=== PATIENT | female | born 1955 | race Caucasian/White ===

== ENCOUNTER → 2023-09-01 06:31 | Day surgery (SDC) | payer MEDICARE, OTHER, SELFPAY | LOC: GI 06:31 | PROVIDERS: ATTENDING PHYSICIAN Specialist | DX: Z12.11 Encounter for screening for malignant neoplasm of colon (principal); K57.30 Diverticulosis of large intestine without perforation or abscess without bleeding; K64.8 Other hemorrhoids; D12.2 Benign neoplasm of ascending colon; Z86.010 Personal history of colon polyps | CPT/HCPCS: 45380; 88305 ==

== ENCOUNTER → 2023-09-29 11:02 | Outpatient (REF) | payer MEDICARE, OTHER, SELFPAY | LOC: HWWDC 11:02 | PROVIDERS: ATTENDING PHYSICIAN Obstetrics & Gynecology; FAMILY PHYSICIAN Family Medicine | DX: Z12.31 Encounter for screening mammogram for malignant neoplasm of breast (principal) | CPT/HCPCS: 77063; 77067 ==

== ENCOUNTER → 2024-02-04 11:34 | Outpatient (REF) | payer MEDICARE, OTHER, SELFPAY ==
[2024-02-04 16:11] LABS: % Basophils 1.1 % (0-2); % Eosinophils 0.6 % (0-6); % Immature Granulocytes 0.3 % (0-0.5); % Lymphocytes 30.6 % (20.5-51.1); % Monocytes 7.6 % (1.7-9.3); % Neutrophils 59.8 % (42.2-75.2); Absolute Basophils 0.1 10^3/uL (0-0.2); Absolute Monocytes 0.5 10^3/uL (0.1-0.6); Absolute Neutrophils 3.9 10^3/uL (1.4-6.5); Hematocrit 43.1 % (37.0-47.0); Hemoglobin 14.6 g/dL (12.0-16.0); Mean Corp Hgb Conc. 33.9 g/dL (33.0-37.0); Mean Corpuscular Hgb 30.6 pg (27.0-31.0); Mean Corpuscular Volume 90.4 fL (81.0-99.0); Mean Platelet Volume 10.3 fL (7.4-10.4); Nucleated Red Blood Cells % 0 %; Platelet Count 179 10^3/uL (130-400); Red Blood Cell Count 4.77 10^6/uL (4.20-5.40); Red Cell Dist. Width 13.9 % (11.5-14.5); White Blood Cell Count 6.5 10^3/uL (4.8-10.8)
[2024-02-04 16:13] LABS: Blood Urea Nitrogen 21 mg/dl (7-17); Calcium 9.9 mg/dl (8.4-10.2); Carbon Dioxide 26 mmol/L (22-30); Chloride 101 mmol/L (98-107); Glucose 104 mg/dl (70-99); Potassium 4.8 mmol/L (3.5-5.1); Sodium 138 mmol/L (135-145); eGFR 54.73
== END ==
LOC: HWLAB 11:34
PROVIDERS: ATTENDING PHYSICIAN Student in an Organized Health Care Education/Training Program; FAMILY PHYSICIAN Family Medicine; REFERRING PHYSICIAN Student in an Organized Health Care Education/Training Program
DX: Z01.818 Encounter for other preprocedural examination (principal)
CPT/HCPCS: 36415; 80048; 85025; 93005

== ENCOUNTER → 2024-02-11 13:39 | Outpatient (REF) | payer MEDICARE, OTHER, SELFPAY | LOC: CLAB 13:39 | PROVIDERS: ATTENDING PHYSICIAN Student in an Organized Health Care Education/Training Program | DX: M79.89 Other specified soft tissue disorders (principal) | CPT/HCPCS: 88305 ==

== ENCOUNTER → 2024-08-24 10:25 | Outpatient (REF) | payer MEDICARE, OTHER, SELFPAY | LOC: HWRAD 10:25 | PROVIDERS: ATTENDING PHYSICIAN Family Medicine | DX: M54.16 Radiculopathy, lumbar region (principal); M25.552 Pain in left hip | CPT/HCPCS: 72110; 73502 ==

== ENCOUNTER → 2024-10-19 09:22 | Outpatient (REF) | payer MEDICARE, OTHER, SELFPAY ==
[2024-10-19 11:19] LABS: Hematocrit 40.7 % (37.0-47.0); Hemoglobin 13.3 g/dL (12.0-16.0); Mean Corp Hgb Conc. 32.7 g/dL (33.0-37.0); Mean Corpuscular Hgb 30.6 pg (27.0-31.0); Mean Corpuscular Volume 93.8 fL (81.0-99.0); Mean Platelet Volume 9.8 fL (7.4-10.4); Platelet Count 198 10^3/uL (130-400); Red Blood Cell Count 4.34 10^6/uL (4.20-5.40); Red Cell Dist. Width 13.5 % (11.5-14.5); White Blood Cell Count 5.7 10^3/uL (4.8-10.8)
[2024-10-19 12:01] LABS: ALT (SGPT) 29 U/L (0-35); AST (SGOT) 28 U/L (14-36); Albumin 4.3 g/dl (3.5-5.0); Alkaline Phosphatase 51 U/L (38-126); Blood Urea Nitrogen 17 mg/dl (7-17); Calcium 9.5 mg/dl (8.4-10.2); Carbon Dioxide 28 mmol/L (22-30); Chloride 107 mmol/L (98-107); Glucose 80 mg/dl (70-99); Potassium 4.9 mmol/L (3.5-5.1); Sodium 140 mmol/L (135-145); Total Bilirubin 0.7 mg/dl (0.2-1.3); Total Protein 6.9 g/dl (6.3-8.2); eGFR 54.73
== END ==
LOC: SDSPAT 09:22
PROVIDERS: ATTENDING PHYSICIAN Orthopaedic Surgery Orthopaedic Surgery of the Spine; FAMILY PHYSICIAN Family Medicine
DX: Z01.818 Encounter for other preprocedural examination (principal)
CPT/HCPCS: 36415; 80053; 85027; 87070; 93005

== ENCOUNTER 2024-11-02 06:11 | Day surgery (SDC) | payer MEDICARE, OTHER, SELFPAY ==
[2024-11-02] VITALS (14 sets, daily range): BP systolic 92–139; BP diastolic 48–76; PULSE 67; O2SAT 90; BMI 34.4
[2024-11-02] MEDS: METHOCARBAMOL 1500 MG PO (09:18)
[2024-11-02] MEDS: CELEBREX 200 MG PO (09:18)
[2024-11-02] MEDS: LYRICA 150 MG PO (09:18)
[2024-11-02] MEDS: TYLENOL 1000 MG PO ×3 (09:19→21:17)
[2024-11-02] MEDS: NORMOSOL-R/PLASMALYTE-A 1000 IV ×3 (09:19→15:01)
[2024-11-02] MEDS: DILAUDID 0.5 MG IV ×2 (11:59→12:14)
--- NOTE | 2024-11-02 12:03 | W.PN.UPDATE ---
Update Note
Progress Note Update
Lumbar spondylolisthesis s/p L4-L5 PSF with Dr Ramirez 11/02/24
- Pt will need brace
DVT prophylaxis - b/l SCDs/TEDs
HTN - + parameters - monitor BP
CKD stage 3 - minimize nephrotoxins
Peripheral neuropathy - continue Gabapentin but increase dose to accommodate for post-surgical pain
HLD
Sinus bradycardia, asymptomatic
Colon polyps
Diverticulosis
Anxiety
Depression
Obesity
Daily alcohol, 1 drink/daily reported
[2024-11-02] MEDS: DILAUDID 0.25 MG IV ×2 (12:49→13:21)
[2024-11-02] MEDS: WELLBUTRIN XL (24 hour extended release) 150 MG PO (14:33)
[2024-11-02] MEDS: LIPITOR 20 MG PO (14:34)
[2024-11-02] MEDS: PROZAC 20 MG PO (14:34)
[2024-11-02] MEDS: ANCEF 5 IV (16:47)
[2024-11-02] MEDS: SENOKOT 17.2 MG PO (21:16)
[2024-11-02] MEDS: PEPCID 20 MG PO (21:16)
[2024-11-02] MEDS: NEURONTIN 300 MG PO (21:16)
[2024-11-02] MEDS: COLACE 100 MG PO (21:16)
[2024-11-02] MEDS: ROXICODONE 5 MG PO (22:20)
[2024-11-03] MEDS: NORMOSOL-R/PLASMALYTE-A 1000 IV (00:13)
[2024-11-03] MEDS: ANCEF 5 IV (00:13)
[2024-11-03 03:10] VITALS: BP 116/52
[2024-11-03] MEDS: TYLENOL 1000 MG PO ×2 (03:10→09:16)
[2024-11-03 06:35] LABS: Hematocrit 34.7 % (37.0-47.0); Hemoglobin 11.5 g/dL (12.0-16.0)
[2024-11-03 07:01] LABS: Blood Urea Nitrogen 17 mg/dl (7-17); Calcium 8.7 mg/dl (8.4-10.2); Carbon Dioxide 25 mmol/L (22-30); Chloride 108 mmol/L (98-107); Estimated Creatinine Clearance 70 ml/min; Glucose 116 mg/dl (70-99); Potassium 4.5 mmol/L (3.5-5.1); Sodium 138 mmol/L (135-145); eGFR > 60.00
[2024-11-03 07:05] VITALS: BP 131/72
--- NOTE | 2024-11-03 08:03 | W.DS.TRANS ---
DC Summary - Analyst
-
Discharge Instructions:
Sleep Apnea Risk Low
Discharge Diagnosis/Procedures Lumbar spondylolisthesis s/p L4-L5 posterior
spinal fusion with Dr Ramierz 11/02/24
Diet Regular
Additional Diets Adequate hydration and minimize opioids to
prevent low blood pressure/dizziness.
Activity As tolerated
Additional Activity No heavy lifting >10 lbs
Driving Restrictions Not until seen by your Dr
Bathing Restrictions OK to shower in 4 days
Instructions:
Stand-Alone Forms: [facility]
Changes to Home Medications: No
Discharge Medications:
DC Medications w/original date entered in [employer]
atorvastatin 20 mg tablet 20 mg PO DAILY 10/26/24
bupropion HCl 150 mg 24 hr tablet, extended release 150 mg PO DAILY 10/26/24
fluoxetine 20 mg tablet 20 mg PO DAILY 10/26/24
gabapentin 300 mg tablet,extended release 24 hr 300 mg PO QPM 10/26/24
ibuprofen 800 mg tablet 800 mg PO Q6H PRN back pain 10/26/24
losartan 100 mg tablet 100 mg PO DAILY 10/26/24
Home Medication Changes
Pending Results: No
--- NOTE | 2024-11-03 08:04 | W.PN.SP ---
Today's Communication / Plan
-
PT doing well
PT
D/c
Subjective / Objective
Subjective Data
PT doing welll
Leg pain gone
Back is sore
Objective Data
Vital Signs
Temp Pulse Resp BP Pulse Ox
97.6 F 67 16 131/72 97
11/03/24 07:05 11/03/24 07:05 11/03/24 07:05 11/03/24 07:05 11/03/24 07:05
Intake and Output
11/02/24 11/03/24 11/04/24
06:59 06:59 06:59
Intake Total 2866 / 2866
Balance 2866 / 2866
Intake:
Oral fluids 2216 / 2216
IV fluids (Total) 650 / 650
normosol 150 / 150
Other:
Number of approximated LARGE 1
amounts of urine
Lab Data
11/03/24 05:42
11/03/24 05:42
Physical Exam
-
Good strength
[2024-11-03] MEDS: NORMOSOL-R/PLASMALYTE-A IV (08:30)
[2024-11-03] MEDS: WELLBUTRIN XL (24 hour extended release) 150 MG PO (08:34)
[2024-11-03] MEDS: NEURONTIN 300 MG PO (08:34)
[2024-11-03] MEDS: COLACE 100 MG PO (08:34)
[2024-11-03] MEDS: SENOKOT 17.2 MG PO (08:34)
[2024-11-03] MEDS: PROZAC 20 MG PO (08:34)
[2024-11-03] MEDS: LIPITOR 20 MG PO (08:35)
--- NOTE | 2024-11-03 09:23 | CM ---
Cm reviewed medical records. CM met with patient in room. Patient confirmed demographics. Patient lives independently with . Patient does not have a history of VN, or SNF. Patient has a walker, shower chair, and raided toilet seat.
Patient is active with her PCP. Patient has medication coverage and will use [facility] in [place].
PLAN: Home with outpatient PT when surgically cleared.
--- NOTE | 2024-11-03 09:25 | W.PN.ORTHO ---
Today's Communication / Plan
-
Await PT and OT recs.
D/c later today if remaining clinically stable.
Assessment
.
Distal Motor Intact: Yes
Dressing:
Clean, dry and intact.
Assessment:
Lumbar spondylolisthesis s/p L4-L5 PSF with Dr Ramirez 11/02/24
- Pt will need brace
DVT prophylaxis - b/l SCDs/TEDs
HTN - + parameters - BPs stable overall
CKD stage 3 - minimize nephrotoxins
Peripheral neuropathy - continue Gabapentin but increase dose to accommodate for post-surgical pain
HLD
Sinus bradycardia, asymptomatic
Colon polyps
Diverticulosis
Anxiety
Depression
Obesity
Daily alcohol, 1 drink/daily reported
[place]. [facility] is approximately 2 hours away. She was advised to keep her SANGITA hose on, do frequent foot pumps during the ride, and to stop intermediate through and walk for DVT
prevention. Pt verbalized understanding
Plan
.
Surgery / Date: L4-L5 PSF with Dr Ramirez 11/02/24
DVT Prophylaxis: Other (b/l SCDs/TEDs)
Activity:
Out of bed.
PT/OT
Discharge Plan: Home
Subjective
.
.:
Patient resting comfortably in bed today.
Low back/RLE pain improved after surgery.
Denies any new significant complaints.
Eager for potential d/c today.
Vital Signs and Labs
.
Vital Signs and Labs:
Lab Results
11/03/24 05:42
11/03/24 05:42
Temp Pulse Resp BP Pulse Ox
97.6 F 67 16 131/72 97
11/03/24 07:05 11/03/24 08:31 11/03/24 07:05 11/03/24 08:31 11/03/24 07:05
Physical Exam
-
HEENT: No pallor, cyanosis, or jaundice. Throat clear.
NECK: Supple. No JVD.
RESPIRATORY: Lungs clear to auscultation.
CVS: S1, S2 normal. RRR.�
ABDOMEN: Soft, non-tender. No distension.
EXTREMITIES: Strength equal, no calf pain with palpation/dorsiflexion. Calves soft.
UNARMED SECURITY OFFICER: AOx3. No focal deficits. scagliola mechanic grossly intact
--- NOTE | 2024-11-03 09:37 | W.DS.TRANS ---
DC Summary - Yard Truck Driver
-
Discharge Instructions:
Sleep Apnea Risk Low
Discharge Diagnosis/Procedures Lumbar spondylolisthesis s/p L4-L5 posterior
spinal fusion with Dr Ramirez 11/02/24
Diet Regular
Additional Diets Adequate hydration and minimize opioids to
prevent low blood pressure/dizziness.
Activity As tolerated
Additional Activity No heavy lifting >10 lbs
Driving Restrictions Not until seen by your Dr
Bathing Restrictions OK to shower in 4 days
Instructions:
Stand-Alone Forms: [facility]
Changes to Home Medications: Yes
Discharge Medications:
DC Medications w/original date entered in [employer]
atorvastatin 20 mg tablet 20 mg PO DAILY 10/26/24
bupropion HCl 150 mg 24 hr tablet, extended release 150 mg PO DAILY 10/26/24
fluoxetine 20 mg tablet 20 mg PO DAILY 10/26/24
Saccharomyces boulardii 250 mg capsule (Florastor) 250 mg PO BID #10 caps 11/03/24
acetaminophen 500 mg tablet (Tylenol Extra Strength) 1,000 mg (2 x 500 mg) PO Q6H #60 tabs 11/03/24
cephalexin 500 mg capsule 500 mg PO Q6H #20 caps 11/03/24
docusate sodium 100 mg capsule 100 mg PO BID #30 caps 11/03/24
famotidine 20 mg tablet 20 mg PO HS #30 tabs 11/03/24
gabapentin 300 mg capsule 300 mg PO BID neuropathic pain #15 caps 11/03/24
losartan 100 mg tablet 100 mg PO DAILY #1 tab 11/03/24
ondansetron HCl 4 mg tablet 4 mg PO Q6H PRN nausea and vomiting #30 tabs 11/03/24
oxycodone 5 mg tablet 5 - 10 mg (1 - 2 x 5 mg) PO Q6H PRN moderate-severe pain #30 tabs 11/03/24
sennosides 8.6 mg tablet (Vero-yaneth) 17.2 mg (2 x 8.6 mg) PO BID #30 tabs 11/03/24
Home Medication Changes
Saccharomyces boulardii 250 mg capsule (Florastor) 250 mg PO BID #10 caps 11/03/24
acetaminophen 500 mg tablet (Tylenol Extra Strength) 1,000 mg (2 x 500 mg) PO Q6H #60 tabs 11/03/24
cephalexin 500 mg capsule 500 mg PO Q6H #20 caps 11/03/24
docusate sodium 100 mg capsule 100 mg PO BID #30 caps 11/03/24
famotidine 20 mg tablet 20 mg PO HS #30 tabs 11/03/24
gabapentin 300 mg capsule 300 mg PO BID neuropathic pain #15 caps 11/03/24
ondansetron HCl 4 mg tablet 4 mg PO Q6H PRN nausea and vomiting #30 tabs 11/03/24
oxycodone 5 mg tablet 5 - 10 mg (1 - 2 x 5 mg) PO Q6H PRN moderate-severe pain #30 tabs 11/03/24
sennosides 8.6 mg tablet (Vero-yaneth) 17.2 mg (2 x 8.6 mg) PO BID #30 tabs 11/03/24
Pending Results: No
[2024-11-03 10:32] VITALS: BP 119/69; BP 120/63; PULSE 76
[2024-11-03 10:49] VITALS: BP 113/70; PULSE 76; O2SAT 94
[2024-11-03 11:00] VITALS: BP 119/64
== END 2024-11-03 11:51 | disposition home or self-care (01) ==
LOC: SDS 06:11
PROVIDERS: Physician Assistant; ATTENDING PHYSICIAN Orthopaedic Surgery Orthopaedic Surgery of the Spine; FAMILY PHYSICIAN Family Medicine
DX: M43.16 Spondylolisthesis, lumbar region (principal)
CPT/HCPCS: 22612; 22840; C1713; 72100; 76000; 80048; 85014; 85018; 97162; 97166; 97530; 97535; C1776